=== PATIENT | female | born 1980 | race Caucasian/White ===

== ENCOUNTER 2019-09-12 14:38 | Emergency (ER) | payer SELFPAY | END 2019-09-12 15:24 | disposition home or self-care (01) | LOC: ERS 14:38 | DX: M67.472 Ganglion, left ankle and foot (principal); F41.9 Anxiety disorder, unspecified; F31.9 Bipolar disorder, unspecified; F20.9 Schizophrenia, unspecified; Z79.899 Other long term (current) drug therapy | CPT/HCPCS: 99283 ==